=== PATIENT | male | born 1980 | race Caucasian/White ===

== ENCOUNTER 2017-10-01 17:58 | Emergency (ER) | payer OTHER ==
[2017-10-01 18:07] VITALS: BP 168/90
--- NOTE | 2017-10-01 19:04 | RAD ---
INDICATION: Left fifth metatarsal and toe pain COMPARISON: None. TECHNIQUE: 3 views of the left foot were obtained. FINDINGS: The adequately corticated bones are properly aligned. Joint spaces appear maintained. No fracture, dislocation or focal bony abnormality is seen. IMPRESSION: Normal radiograph of the left foot. If the patient's symptoms persist, follow-up imaging is recommended.
--- NOTE | 2017-10-01 20:28 | UC ---
Dylan Michelle Stephanie, scribed for Alejo Chaney MD on 10/01/17 at 2027 . Lower Extremity/Ankle HPI - HPI Summary HPI Summary: Pt is a 37 y/o M with pain in left foot that began 3 days ago. The pain has increased since Monday and is localized at the base of the left pinky toe. Symptoms are alleviated at rest and aggravated while ambulating. - History of Current Complaint Chief Complaint: UCLowerExtremity Stated Complaint: FOOT INJURY Time Seen by Provider: 10/01/17 18:09 Hx Obtained From: Patient Onset/Duration: Still Present Severity Currently: Mild Pain Intensity: 1 Pain Scale Used: 0-10 Numeric Aggravating Factor(s): Standing, Ambulation Alleviating Factor(s): Rest - Allergies/Home Medications Allergies/Adverse Reactions: Allergies Allergy/AdvReac Type Severity Reaction Status Date / Time No Known Allergies Allergy Verified 10/01/17 18:07 Home Medications: Home Medications NK [No Home Medications Reported] 10/01/17 [History Confirmed 10/01/17] PMH/Surg Hx/FS Hx/Imm Hx - Surgical History Surgical History: Yes Surgery Procedure, Year, and Place: lt knee - Family History Known Family History: Positive: Unknown - Pt denies any family history when asked. - Social History Alcohol Use: Rare Substance Use Type: None Smoking Status (MU): Light Every Day Tobacco Smoker Type: Cigarettes Review of Systems Constitutional: Negative - Negative Fever Musculoskeletal: Other: - Pain in left foot along base of pinky toe. All Other Systems Reviewed And Are Negative: Yes Physical Exam Triage Information Reviewed: Yes Vital Signs: Initial Vital Signs Temp 98.5 F 10/01/17 18:03 Pulse 119 10/01/17 18:03 Resp 18 10/01/17 18:03 BP 168/90 10/01/17 18:03 Pulse Ox 96 10/01/17 18:03 Vital Signs Reviewed: Yes - Additional Comments General: well-appearing, no pain distress Skin: warm, color reflects adequate perfusion, dry Head: normal Eyes: EOMI, TERESO ENT: normal Neck: supple, nontender Respiratory: CTA, breath sounds present Cardiovascular: RRR Abdomen: soft, nontender Bowel: present Musculoskeletal: strength/ROM intact, tender to palpation on the L foot distal 5th metatarsal and 5th toe. Not hot to touch. Neurological: normal, sensory/motor intact, A&O x3 Psychological: affect/mood appropriate Diagnostics - Radiology XRAY L foot Xray Interpretation: Positive (See Comments) - Normal radiograph of the left foot. Radiology Interpretation Completed By: Radiologist Lower Extremity Course/Dx - Course Course Of Treatment: DISCUSSED X-RAY RESULTS WITH THE PATIENT. - Differential Dx/Diagnosis Provider Diagnoses: LEFT FOOT PAIN/STRAIN Discharge - Discharge Plan Condition: Stable Disposition: HOME Patient Education Materials: Foot Sprain (ED) Forms: *Work Release Referrals: [facility] [Outside] Gabriel Padron MD [Medical Doctor] - Additional Instructions: FOLLOW UP WITH ORTHOPEDICS/SPORTS MED IF NOT IMPROVED. RETURN TO THE EMERGENCY DEPARTMENT FOR ANY WORSENING OF YOUR CONDITION OR QUESTIONS OR CONCERNS. The documentation as recorded by the Dylan rodriguez Stephanie accurately reflects the service I personally performed and the decisions made by me, Alejo Chaney MD.
== END 2017-10-01 19:25 | disposition home or self-care (01) ==
LOC: UCEAST 17:58
DX: S96.912A Strain of unspecified muscle and tendon at ankle and foot level, left foot, initial encounter (principal); X58.XXXA Exposure to other specified factors, initial encounter; Y93.9 Activity, unspecified; Y92.9 Unspecified place or not applicable; F17.210 Nicotine dependence, cigarettes, uncomplicated
CPT/HCPCS: 99211; G0463

== ENCOUNTER 2019-08-18 11:37 | Emergency (ER) | payer OTHER ==
[2019-08-18 11:46] VITALS: BP 133/83
--- NOTE | 2019-08-18 12:01 | UC ---
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 pt states this started night. pt has cough, loose and productive. Pleasant 39 yo gentleman c/o cough and sinus congestion since (today is Monday). Started in sinuses and traveled to chest. Hard to sleep at night d /t cough. Does have a nebulizer but has not used it. + sick contact(s). No rash. No sob. Has been taking cough medicine and Albert's coughdrop. No GI issues. - History of Current Complaint Chief Complaint: UCRespiratory Stated Complaint: COUGH Time Seen by Provider: 08/18/19 12:01 Hx Obtained From: Patient Pain Intensity: 0 - Allergy/Home Medications Allergies/Adverse Reactions: Allergies Allergy/AdvReac Type Severity Reaction Status Date / Time No Known Allergies Allergy Verified 08/18/19 11:45 PMH/Surg Hx/FS Hx/Imm Hx Previously Healthy: Yes - Surgical History Surgical History: Yes Surgery Procedure, Year, and Place: lt knee - Family History Known Family History: Positive: Unknown - Pt denies any family history when asked. - Social History Alcohol Use: Occasionally Substance Use Type: None Smoking Status (MU): Light Every Day Tobacco Smoker Type: Cigarettes Review of Systems All Other Systems Reviewed And Are Negative: Yes Constitutional: Positive: Fatigue Skin: Positive: Negative Eyes: Positive: Negative ENT: Positive: Other - see hpi Respiratory: Positive: Cough - see hpi Cardiovascular: Positive: Other - no palpitations, cp Gastrointestinal: Positive: Negative Genitourinary: Positive: Negative Motor: Positive: Negative Neurovascular: Positive: Negative Musculoskeletal: Positive: Negative Neurological: Positive: Negative Psychological: Positive: Negative Is Patient Immunocompromised?: No Physical Exam Triage Information Reviewed: Yes Appearance: Well-Nourished - sitting up in chair, able to self ambulate. Looks tired but NAD. Vital Signs: Initial Vital Signs Temp 96.9 F 08/18/19 11:43 Pulse 118 08/18/19 11:43 Resp 18 08/18/19 11:43 BP 133/83 08/18/19 11:43 Pulse Ox 96 08/18/19 11:43 Vital Signs Reviewed: Yes Eye Exam: Normal ENT: Positive: Pharyngeal erythema - mild post pharyng redness, c/w cough, Nasal congestion, Other - TM - can not visualize TM d/t cerumen impaction Neck exam: Normal Neck: Positive: Supple Respiratory Exam: Other - + ronchorus cough. + fine exp wheezes scattered bilateral Respiratory: Positive: Chest non-tender, No respiratory distress, No accessory muscle use Cardiovascular Exam: Other - HR noted at triage. HR approx 110 at examination. Correlates with L radial pulse Cardiovascular: Positive: Pulses Normal, Brisk Capillary Refill Abdominal Exam: Normal Abdomen Description: Positive: Nontender Musculoskeletal Exam: Normal - gait steady, moves 4 ext's. Neurological Exam: Normal Psychological Exam: Normal - conversing easily and appropriately Course/Dx - Course Course Of Treatment: Reviewed coa / tx plan. Does not want ears flushed today. Declines prescription for albuterol inhaler or nebulizer. Aware to hydrate. Avoid otc "cold" medication - specifically decongestant - for now. OTC cough drops ok. Work note written. Questions as posed answered to the best of my ability. - Diagnoses Provider Diagnosis: Bronchitis, Bronchospasm Discharge ED - Sign-Out/Discharge Documenting (check all that apply): Patient Departure All imaging exams completed and their final reports reviewed: No Studies - Discharge Plan Condition: Critical Disposition: HOME Prescriptions: Azithromyxin JOSH (NF) [Z-Josh (Zithromax) 250 mg tabs #6] 2 tab PO .TODAY, THEN 1 DAILY #6 tab Patient Education Materials: Acute Bronchitis (ED), Bronchospasm (ED) Forms: *Work Release Referrals: Elijah Palomo MD [Primary Care Provider] - Additional Instructions: HYDRATE. You are dehydrated. Consider humidified air. Consider albuterol inhalor and or nebilizer. If you change your mind, check with Dr. Palomo. Please follow up with Dr. Palomo in the next couple weeks for a respiratory check. Please seek medical attention for worse or new problems. - Billing Disposition and Condition Condition: CRITICAL Disposition: Home
== END 2019-08-18 12:25 | disposition home or self-care (01) ==
LOC: UCEAST 11:37
DX: J40 Bronchitis, not specified as acute or chronic (principal); J98.01 Acute bronchospasm; H61.20 Impacted cerumen, unspecified ear; F17.210 Nicotine dependence, cigarettes, uncomplicated
CPT/HCPCS: 99211; G0463

== ENCOUNTER 2019-08-25 10:58 | Emergency (ER) | payer OTHER ==
[2019-08-25 11:11] VITALS: BP 139/82
--- NOTE | 2019-08-25 11:44 | UC ---
Ear Complaint HPI - HPI Summary HPI Summary: patient was taking zithromax last week for chest cold and cough got better. however started with L ear pain 2-3 days ago, worse today - History of Current Complaint Chief Complaint: UCRespiratory Stated Complaint: EAR PAIN, COUGH Time Seen by Provider: 08/25/19 11:33 Hx Obtained From: Patient Onset/Duration: Gradual Onset Severity Initially: Mild Severity Currently: Moderate Pain Intensity: 5 Aggravating Factors: Nothing Alleviating Factors: Nothing Associated Signs/Symptoms: Positive: URI Symptoms. Negative: Discharge - Allergies/Home Medications Allergies/Adverse Reactions: Allergies Allergy/AdvReac Type Severity Reaction Status Date / Time No Known Allergies Allergy Verified 08/25/19 11:11 PMH/Surg Hx/FS Hx/Imm Hx Previously Healthy: Yes - Surgical History Surgical History: Yes Surgery Procedure, Year, and Place: lt knee - Family History Known Family History: Positive: Unknown - Pt denies any family history when asked. - Social History Occupation: Employed Full-time Lives: With Family Alcohol Use: Rare Substance Use Type: None Smoking Status (MU): Light Every Day Tobacco Smoker Type: Cigarettes Amount Used/How Often: 5 sig/day Cessation Counseling: Patient Advised to Stop Review of Systems All Other Systems Reviewed And Are Negative: Yes Constitutional: Positive: Negative. Negative: Fever, Chills Skin: Negative: Rash Eyes: Positive: Negative ENT: Positive: Ear Ache Respiratory: Positive: Negative Cardiovascular: Positive: Negative Psychological: Positive: Negative Is Patient Immunocompromised?: No Physical Exam Triage Information Reviewed: Yes Appearance: Well-Appearing, No Pain Distress, Obese Vital Signs: Initial Vital Signs Temp 96.5 F 08/25/19 11:06 Pulse 98 08/25/19 11:06 Resp 16 08/25/19 11:06 BP 139/82 08/25/19 11:06 Pulse Ox 94 08/25/19 11:06 Vital Signs Reviewed: Yes Eye Exam: Normal Eyes: Positive: Conjunctiva Clear ENT: Positive: TM bulging - Left TM, TM dull, TM red Neck exam: Normal Neck: Positive: Nontender, No Lymphadenopathy Respiratory Exam: Normal Respiratory: Positive: Lungs clear Cardiovascular Exam: Normal Cardiovascular: Positive: RRR Neurological Exam: Normal Psychological Exam: Normal Skin Exam: Normal Skin: Negative: Rashes Ear Complaint Course/Dx - Differential Dx/Diagnosis Differential Diagnosis/HQI/PQRI: Cerumen Impaction, Foreign Body, Otitis Externa , Otitis Media Provider Diagnosis: Otitis media Discharge ED - Sign-Out/Discharge Documenting (check all that apply): Patient Departure All imaging exams completed and their final reports reviewed: No Studies - Discharge Plan Condition: Good Disposition: HOME Prescriptions: Cefdinir [Cefdinir 300 MG CAP] 300 mg PO BID #20 capsule Patient Education Materials: Ear Infection (ED) Forms: *Work Release Referrals: Elijah Palomo MD [Primary Care Provider] - 3 Days (if no better) Additional Instructions: rest and drink plenty of fluids use cefdinir antibiotic as directed - Billing Disposition and Condition Condition: GOOD Disposition: Home
== END 2019-08-25 11:45 | disposition home or self-care (01) ==
LOC: UCEAST 10:58
DX: H66.92 Otitis media, unspecified, left ear (principal); R05 Cough; R09.89 Other specified symptoms and signs involving the circulatory and respiratory systems; F17.210 Nicotine dependence, cigarettes, uncomplicated
CPT/HCPCS: 99212; G0463